=== PATIENT | male | born 1965 | race Native Hawaiian/Other Pacific Islander ===

== ENCOUNTER 2016-12-25 17:05 | Emergency (ER) | payer OTHER ==
[2016-12-25 17:28] VITALS: BP 147/81; PULSE 58; RESP 16; TEMP 97.8; O2SAT 96
[2016-12-25] MEDS ORDERED: Absorbable Gelatin Sponge Size 12-7 ONE (17:57)
[2016-12-25] MEDS ORDERED: Naproxen 550 mg Tab PO STA (18:14)
--- NOTE | 2016-12-25 18:16 | C.PDOC ---
History Of Present Illness 51 y/o male presents with laceration to left index finger, occurred yesterday, by an exacto type knofe. pt sts it wouldn't stop bleeding today, +pain. last tdap unk Time Seen by Provider: 12/25/16 17:20 Chief Complaint (Nursing): Abnormal Skin Integrity History Per: Patient History/Exam Limitations: no limitations Onset/Duration Of Symptoms: Days (1 day ) Current Symptoms Are (Timing): Still Present Location Of Injury: Left: Hand (index finger ) Quality Of Symptoms: Painful (laceration ) Recent travel outside of the [place]: No Past Medical History Reviewed: Historical Data, Nursing Documentation, Vital Signs Vital Signs: Last Vital Signs Temp 97.8 F 12/25/16 17:28 Pulse 58 L 12/25/16 17:28 Resp 16 12/25/16 17:28 BP 147/81 12/25/16 17:28 Pulse Ox 96 12/25/16 19:04 - Medical History PMH: Hypercholesterolemia, Hyperlipidemia Family History: States: Unknown Family Hx - Social History Hx Alcohol Use: Yes Hx Substance Use: No - Immunization History Hx Tetanus Toxoid Vaccination: No Hx Influenza Vaccination: No Hx Pneumococcal Vaccination: No Review Of Systems Skin: Positive for: Other (laceration to left index finger ) Neurological: Negative for: Weakness, Numbness Physical Exam - Physical Exam Appears: Non-toxic, No Acute Distress Skin: Warm, Dry, Other (laceration to left index finger ) Head: Atraumatic, Normacephalic Eye(s): bilateral: Normal Inspection, PERRL, EOMI Extremity: Normal ROM, Capillary Refill (good capillary refill, less than two seconds ), No Deformity Pulses: Left Radial: Normal, Right Radial: Normal Neurological/Psych: Oriented x3 ED Course And Treatment O2 Sat by Pulse Oximetry: 96 Medical Decision Making Medical Decision Making: gelfoam applied to finger, no active bleeding noted, pt updated on tetanus, will d/c with antibitocis, return to ER in 2 days for wound check. Disposition Counseled Patient/Family Regarding: Diagnosis, Need For Followup, Rx Given - Disposition Disposition: HOME/ ROUTINE Disposition Time: 19:02 Condition: STABLE Additional Instructions: Keep finger covered. clean and dry until you return to ER in 2 days for a wound check. Take Aleve for pain. Take antibiotics as prescribed. Return to ER sooner if bleeding through bandage. Prescriptions: Cephalexin [Keflex] 500 mg PO QID #20 capsule Instructions: Skin Avulsion (ED) Forms: [facility] (Stateless), General Discharge Instructions - Clinical Impression Clinical Impression: Avulsion of skin of finger - PA / DIRECTOR NURSES' REGISTRY / Resident Statement MD/DO has reviewed & agrees with the documentation as recorded. - Scribe Statement The provider has reviewed the documentation as recorded by the Jbibamanda Goodwin All medical record entries made by the Malena were at my direction and personally dictated by me. I have reviewed the chart and agree that the record accurately reflects my personal performance of the history, physical exam, medical decision making, and the department course for this patient. I have also personally directed, reviewed, and agree with the discharge instructions and disposition.
[2016-12-25] MEDS ORDERED: Naproxen 550 mg Tab PO ONE (18:32)
[2016-12-25] MEDS ORDERED: Tetanus/Diphtheria Toxoids 0.5 ml Syringe IM ONE (18:32)
== END 2016-12-25 19:11 | disposition home or self-care (01) ==
LOC: C.ER 17:05
DX: S61.211A Laceration without foreign body of left index finger without damage to nail, initial encounter (principal); W26.0XXA Contact with knife, initial encounter

== ENCOUNTER 2016-12-27 17:31 | Emergency (ER) | payer OTHER ==
[2016-12-27 17:39] VITALS: BP 161/83; PULSE 80; RESP 18; TEMP 97.8; O2SAT 95
--- NOTE | 2016-12-27 18:36 | C.PDOC ---
History Of Present Illness 51 y/o male presents to ED for wound check on 2nd left finger. Patient is also complaining of right deltoid swelling at injection site of Tetanus vaccine. Patient denies discharge from wound, no surrounding redness, new injury, fever, numbness, change in sensation or any other complaints at this time. Time Seen by Provider: 12/27/16 18:12 Chief Complaint (Nursing): Wound Check History Per: Patient History/Exam Limitations: no limitations Onset/Duration Of Symptoms: Days Ago Current Symptoms Are (Timing): Still Present Location Of Injury: Left: Hand Past Medical History Reviewed: Historical Data, Nursing Documentation, Vital Signs Vital Signs: Last Vital Signs Temp 97.8 F 12/27/16 17:36 Pulse 80 12/27/16 17:36 Resp 18 12/27/16 17:36 BP 161/83 H 12/27/16 17:36 Pulse Ox 95 12/27/16 18:58 - Medical History PMH: Hypercholesterolemia, Hyperlipidemia Surgical History: No Surg Hx Family History: States: No Known Family Hx - Social History Hx Alcohol Use: Yes Hx Substance Use: No - Immunization History Hx Tetanus Toxoid Vaccination: Yes (2016) Hx Influenza Vaccination: No Hx Pneumococcal Vaccination: No Review Of Systems Constitutional: Negative for: Fever, Chills Musculoskeletal: Positive for: Hand Pain Skin: Negative for: Rash Neurological: Negative for: Weakness, Numbness Physical Exam - Physical Exam Appears: Non-toxic, No Acute Distress Skin: Warm, Dry, No Rash, Other (gelfoam in place to lac on [id number] finger. No surrounding erythema. No discharge) Head: Atraumatic, Normacephalic Eye(s): bilateral: Normal Inspection, EOMI Nose: Normal Oral Mucosa: Moist Neck: Normal ROM, Supple Chest: Symmetrical Respiratory: No Accessory Muscle Use Extremity: Normal ROM, Capillary Refill (<2 seconds), No Deformity, Swelling ((+ ) 4 cm area of swelling and tenderness right deltoid (-) erythema (-) no increased warmth) Pulses: Left Radial: Normal, Right Radial: Normal Neurological/Psych: Oriented x3, Normal Motor, Normal Sensation ED Course And Treatment O2 Sat by Pulse Oximetry: 95 (RA) Pulse Ox Interpretation: Normal Progress Note: DIsucsed wound care and signs of infection. Instructed to return to ER if symptoms persist or worsen. Case discussed with Dr Tse , agreed upon plan and discharge. Disposition - Disposition Disposition: HOME/ ROUTINE Disposition Time: 18:34 Condition: STABLE Additional Instructions: Apply ice to the affected area. Keep area clean and dry. Return to ER if signs of infection arise including redness, increased swelling or fever. Instructions: Acute Wound Care (ED) Forms: [facility] (Nicaraguan) - Clinical Impression Clinical Impression: Visit for wound check - PA / SMOKING TOBACCO PACKER HAND / Resident Statement MD/DO has reviewed & agrees with the documentation as recorded. - Scribe Statement The provider has reviewed the documentation as recorded by the Scribamanda Sprague All medical record entries made by the Malena were at my direction and personally dictated by me. I have reviewed the chart and agree that the record accurately reflects my personal performance of the history, physical exam, medical decision making, and the department course for this patient. I have also personally directed, reviewed, and agree with the discharge instructions and disposition.
== END 2016-12-27 18:50 | disposition home or self-care (01) ==
LOC: C.ER 17:31
DX: Z48.00 Encounter for change or removal of nonsurgical wound dressing (principal)

== ENCOUNTER 2017-10-11 10:56 | Emergency (ER) | payer OTHER ==
[2017-10-11 11:01] VITALS: BP 154/92; PULSE 74; RESP 18; TEMP 98.4; O2SAT 100
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
--- NOTE | 2017-10-11 11:51 | RAD ---
Date of service: 10/11/2017 PROCEDURE: Left Wrist Radiographs. HISTORY: injury COMPARISON: None. FINDINGS: BONES: Normal. No fracture. JOINTS: Normal. No dislocation. SOFT TISSUES: Normal. OTHER FINDINGS: None. IMPRESSION: Normal left wrist radiographs.
== END 2017-10-11 12:00 | disposition home or self-care (01) ==
LOC: C.ER 10:56
DX: S63.502A Unspecified sprain of left wrist, initial encounter (principal); V89.2XXA Person injured in unspecified motor-vehicle accident, traffic, initial encounter

== ENCOUNTER 2018-03-02 07:13 | Day surgery (SDC) | payer OTHER ==
[2018-02-28 13:18] VITALS: BMI 30.1
[2018-03-02] MEDS ORDERED: ceFAZolin 1 gm FROZEN Premix 2 GM/100 ML ML IVPB ONE (08:22)
[2018-03-02] MEDS ORDERED: Iohexol 240 (50 ml) ONE (08:22)
[2018-03-02] MEDS ORDERED: Midazolam 2 MG/2 ML VIAL ONE (09:00)
[2018-03-02] MEDS ORDERED: Propofol 10 mg/ml Inj (20 ML) ONE (09:01)
[2018-03-02] MEDS ORDERED: Rocuronium 10 mg/ml (5 ml) ONE (09:48)
[2018-03-02] MEDS ORDERED: Neostigmine Methylsulfate 3mg/3ml Syringe IV ONE (11:18)
--- NOTE | 2018-03-02 11:42 | PCM.SURG1 ---
Surgeon's Initial Post Op Note - Surgeon's Notes Surgeon: Dr. Giles Dye Expert: Dr. Gentile PGY3 Type of Anesthesia: General Endo Pre-Operative Diagnosis: Diabetic w/ Cholelithiasis Operative Findings: See operative dictation Post-Operative Diagnosis: Diabetic w/ Cholelithiasis Operation Performed: Laparoscopic Cholecystectomy Specimen/Specimens Removed: Gallbladder Estimated Blood Loss: EBL {In ML}: 25 Blood Products Given: N/A Drains Used: No Drains Post-Op Condition: Good Date of Surgery/Procedure: 03/02/18 Time of Surgery/Procedure: 11:41
[2018-03-02] MEDS ORDERED: Oxycodone/Acetaminophen 5/325 mg Tab PO PRN (11:43)
[2018-03-02 12:00] VITALS: O2SAT 100
[2018-03-02] MEDS: HYDROmorphone 0.5 mg/0.5 ml ISec IVP PRN ×2 (12:08→12:30)
[2018-03-02 12:56] VITALS: TEMP 98
[2018-03-02 13:08] VITALS: BP 123/70; PULSE 63; RESP 18
--- NOTE | 2018-03-03 07:04 | OP ---
PROCEDURE DATE: 03/02/2018 PREOPERATIVE DIAGNOSES: Cholecystitis, cholelithiasis. POSTOPERATIVE DIAGNOSES: Cholecystitis, cholelithiasis. PROCEDURE CARRIED OUT: Laparoscopic cholecystectomy with C-arm cholangiogram. SURGEON: Gerry iGles Jr., MD DIRECTOR OF PERSONNEL: Neil Gentile DO ANESTHESIOLOGIST: Dr. Zaldivar. INDICATIONS: The patient is a 52-year-old male with a history of adult-onset diabetes, who had testing done which showed that he had gallstones. Prior to the operation, the risks and benefits of proceeding with elective surgery were reviewed extensively with him, and he was well aware of this and had been given reading material. OPERATIVE FINDINGS: Cholangiogram carried out to the cystic duct showed a small cystic duct flow into the duodenum and visualization of the hepatic radicles. We were unable to get a good view of the hepatic radicles, nonetheless and multiple films. The rest of the intraoperative findings were unremarkable. DESCRIPTION OF PROCEDURE: The patient was given general anesthesia and intravenous antibiotics. Venodyne boots were applied. A Trell trocar was inserted by cut-down technique. Two additional 5 mm trocars and eventually a third 5 mm trocar was inserted. The cystic duct and cystic artery in a view of safety was obtained. Cholangiogram was carried out through the cystic duct. After this was done, the gallbladder was removed from the liver bed with minimal bleeding 25 mL. We then irrigated out the abdomen. We closed the abdomen with a closure device of the umbilicus, and the puncture sites of the skin were closed. During the closure of the umbilicus, the needle broke, which we had to spend a great deal of time retrieving all fragments of the needle which was successfully accomplished. There was a small stone in the cystic duct which had spilled into the abdomen; a small green size stone. The rest of the intraoperative findings were unremarkable. The patient tolerated the procedure well in an airtight closure. Blood loss was 25 mL. Gerry Giles Jr., MD cc: Kathrin Zelaya MD
== END 2018-03-02 14:21 | disposition home or self-care (01) ==
LOC: C.SDS 07:13
PROVIDERS: ATTEND Surgery Vascular Surgery
DX: K80.10 Calculus of gallbladder with chronic cholecystitis without obstruction (principal); E11.9 Type 2 diabetes mellitus without complications
CPT/HCPCS: 47563; 82948; 88304; J0690; J1170; J1885; J2001; J2250; J2405; J2704; J2710; J3010; Q9966